=== PATIENT | female | born 1950 | race Caucasian/White ===

== ENCOUNTER → 2018-11-19 | Outpatient (CLI) | payer MEDICARE ==
[~2018-11-19] MED LIST: ATOR10TA PO; CITA10TA70 PO; CLCX200C PO; CLON2TAB16; CYCL5TAB11 PO; DIAZ10TA PO; FLT05NA16 NSEACH; HCT25T PO; HYDR-707 PO; LAMO100T; LATA2.5D5 OP; LEVO125T; METO25TA PO; PANT20TA2 PO; TOPI100T2 PO; TRAZ150T42 PO; TRIM100T7 PO; TRZ100T; [UNRECOGNIZED DRUG - CODE] TP
--- NOTE | 2018-11-20 20:46 | Diagnostic Imaging Report ---
INDICATION: Routine screening. Comparison is made with prior mammogram from 04/19/2014. 2-D and 3-D bilateral screening mammography was performed with a Computer Aided Detection (CAD) system. FINDINGS: Bilateral subpectoral breast implants are again noted. Implant contours appear stable. There are scattered fibroglandular densities throughout both breasts. The parenchymal pattern is stable. No mass or malignant-appearing microcalcifications are seen. The axillae are unremarkable. IMPRESSION: No mammographic features suspicious for malignancy are identified. ACR BI-RADS Category 2: Benign findings. Result letter will be mailed to the patient. Note: At least 10% of breast cancer is not imaged by mammography. Dictated on workstation # [id number]
== END ==
LOC: RAD 14:26
PROVIDERS: ATTEND Nurse Practitioner Family
DX: Z12.31 Encounter for screening mammogram for malignant neoplasm of breast (principal)
CPT/HCPCS: 77067

== ENCOUNTER → 2019-04-13 | Outpatient (CLI) | payer MEDICARE ==
--- NOTE | 2019-04-13 14:15 | Diagnostic Imaging Report ---
PROCEDURE: MRI right joint upper extremity without contrast. TECHNIQUE: Multiplanar, multisequence non contrast-enhanced MRI of the right upper extremity was accomplished. INDICATION: Right shoulder pain for one year. COMPARISON: None. FINDINGS: No acute fracture or dislocation is seen in the right shoulder. Small focus of increased T2 signal at the anterior greater tuberosity likely represents subcortical cyst-like changes and is degenerative. There is mildly increased joint fluid. There is a small full-thickness defect at the articular surface of the humeral head measuring 4 mm. There is severe tendinosis with intrasubstance tearing of the supraspinatus tendon, which extends medially. The infraspinatus tendon demonstrates low-grade partial-thickness tearing at the articular surface distally. The teres minor tendon is intact. The subscapularis tendon demonstrates mild tendinosis but appears intact. The long head of the biceps tendon demonstrates a complete tear proximally at the intra-articular portion. The glenoid labrum is suboptimally evaluated in the absence of intra-articular contrast, but does appear to demonstrate degeneration with no paralabral cyst seen. The spinoglenoid and suprascapular notches are clear. There are [id number] degenerative changes in the right acromioclavicular joint with a small subacromial spur. The acromion has a curved undersurface. The coracoclavicular and coracoacromial ligaments are intact. There is no muscular atrophy. The soft tissues about the right shoulder are otherwise unremarkable. IMPRESSION: 1. Marked tendinosis with low-grade intrasubstance tearing of the supraspinatus tendon. Low-grade partial-thickness tearing of the infraspinatus tendon. No muscular atrophy is seen. 2. Complete tear of the proximal long head of the biceps tendon. 3. Degenerative changes in the acromioclavicular joint with subacromial spurring. Dictated by: Dictated on workstation # [id number]
== END ==
LOC: RAD 12:32
PROVIDERS: ATTEND Orthopaedic Surgery
DX: M75.101 Unspecified rotator cuff tear or rupture of right shoulder, not specified as traumatic (principal); S46.111A Strain of muscle, fascia and tendon of long head of biceps, right arm, initial encounter; M19.011 Primary osteoarthritis, right shoulder
CPT/HCPCS: 73221

== ENCOUNTER 2019-05-25 15:51 | Outpatient (RCR) | payer MEDICARE | END 2019-07-15 12:45 | disposition home or self-care (01) | PROVIDERS: ATTEND Orthopaedic Surgery | DX: M75.101 Unspecified rotator cuff tear or rupture of right shoulder, not specified as traumatic (principal); M75.41 Impingement syndrome of right shoulder; Z98.1 Arthrodesis status; Z87.81 Personal history of (healed) traumatic fracture ==

== ENCOUNTER → 2019-06-04 | Outpatient (CLI) | payer MEDICARE ==
--- NOTE | 2019-06-04 10:28 | Diagnostic Imaging Report ---
PROCEDURE: MR imaging cervical spine without contrast. TECHNIQUE: Multiplanar, multisequence MR imaging of the cervical spine was performed without contrast. INDICATION: Prior cervical spine fusion. Spondylosis. COMPARISON: 11/22/2011 FINDINGS: Interval anterior fusion with interbody bone grafting at C3-C6. Normal alignment. Vertebral body heights are preserved. Bone marrow signal is otherwise normal. No spinal canal narrowing. Osteophytic ridging and facet hypertrophy result in mild neural foraminal narrowing on the right at C2-C3, C4-C5, C5-C6 and on the left at C3-C4. Bilateral mild neural foraminal narrowing at C6-C7. No high-grade neural foraminal narrowing. No abnormal signal in the cervical spinal cord. The visualized paravertebral soft tissues are unremarkable. IMPRESSION: 1. Interval anterior fusion with interbody bone grafting at C3-C6. 2. Scattered mild neural foraminal narrowing as above. No high-grade spinal canal or neural foraminal narrowing. 3. No abnormal signal in the cervical spinal cord. Dictated by: Dictated on workstation # [id number]
== END ==
LOC: RAD 08:28
PROVIDERS: ATTEND Nurse Practitioner Family
DX: M47.816 Spondylosis without myelopathy or radiculopathy, lumbar region (principal); M48.02 Spinal stenosis, cervical region; M25.78 Osteophyte, vertebrae; Z98.1 Arthrodesis status
CPT/HCPCS: 72141

== ENCOUNTER 2019-12-03 18:40 | Emergency (ER) | payer MEDICARE ==
[~2019-12-03] VITALS: Ht 63.5 cm; Wt 173.0 kg
[2019-12-03] MEDS ORDERED: morphine INJ 10 MG/ML 1ML (SYR OR VIAL) IVP STA (18:49)
--- NOTE | 2019-12-03 18:52 | ED Abdominal Pain ---
General Chief Complaint: Abdominal/GI Problems Stated Complaint: SOA Source of Information: Patient Exam Limitations: No Limitations History of Present Illness Date Seen by Provider: Dec 03, 2019 Time Seen by Provider: 18:51 Initial Comments To ER with reports of abdominal pain left lower quadrant, abdominal distention. She's also had constipation. SHe is also had shortness of breath. She's had symptoms for 2 days. She has chills but no measured fevers. No exposure that she is known about 2 Covid patients. Timing/Duration: 1-2 Days Severity/Quality: Moderate Location: [facility] Radiation: No Radiation Activities at Onset: None Associated Symptoms: Denies Symptoms Allergies and Home Medications Allergies Coded Allergies: No Known Drug Allergies (Unverified Allergy, Mild, 07/14/09) Home Medications Diazepam 10 Mg Tablet, 1 EACH PO QID, (Reported) Latanoprost 2.5 Ml Drops, 2.5 ML OP DAILY Prescribed by: JOSH AMAYA on 12/01/14 0850 Metoprolol Succinate 25 Mg Tab.sr.24h, 1 EACH PO DAILY Prescribed by: JOSH AMAYA on 12/01/14 0850 Metronidazole 500 Mg Tablet, 500 MG PO TID Prescribed by: ABDULKADIR OLEARY on 12/03/192033 Pantoprazole Sodium 20 Mg Tablet.dr, 40 MG PO DAILY Prescribed by: NIMA DRAKE on 12/01/141114 Sulfamethoxazole/Trimethoprim 1 Each Tablet, 1 EACH PO BID Prescribed by: ABDULKADIR OLEARY on 12/03/192033 Topiramate 100 Mg Tablet, 100 MG PO DAILY Prescribed by: JOSH AMAYA on 12/01/14 0850 Trazodone Hcl 150 Mg Tablet, 150 MG PO DAILY Prescribed by: JOSH AMAYA on 12/01/1450 Patient Home Medication List Home Medication List Reviewed: Yes Review of Systems Review of Systems Constitutional: see HPI EENTM: No Symptoms Reported Respiratory: See HPI, Shortness of Air Cardiovascular: No Symptoms Reported Gastrointestinal: See HPI, Abdominal Pain Genitourinary: No Symptoms Reported Musculoskeletal: no symptoms reported Skin: no symptoms reported Psychiatric/Neurological: No Symptoms Reported Endocrine: No Symptoms Reported Hematologic/Lymphatic: No Symptoms Reported Past Ikwbsgi-Bzrgbv-Ccsaaa Hx Patient Social History Recent Foreign Travel: No Contact w/Someone Who Travel: No Immunizations Up To Date Date of Pneumonia Vaccine: Dec 01, 2012 Past Medical History Reproductive Disorders: No Physical Exam Vital Signs Vital Signs - First Documented 12/03/19 18:47 Temp 37.6 Pulse 104 Resp 20 B/P (MAP) 135/77 (96) Pulse Ox 96 O2 Delivery Room Air Capillary Refill : Height/Weight/BMI Height: 5'7.00" Weight: 135lbs. oz. 61.850268yf; BMI Method: General Appearance: WD/WN, no apparent distress, other (anxious) Neck: non-tender, full range of motion Respiratory: chest non-tender, lungs clear, normal breath sounds, no respiratory distress, no accessory muscle use Gastrointestinal: normal bowel sounds, soft, tenderness Extremities: normal range of motion, non-tender Pelvic: normal external exam, normal adnexa Neurologic/Psychiatric: alert, normal mood/affect, oriented x 3 Skin: normal color, warm/dry Progress/Results/Core Measures Results/Orders Lab Results Laboratory Tests Test 12/03/19 18:55 Range/Units White Blood Count 12.4 H 4.3-11.0 10^3/uL Red Blood Count 4.43 4.35-5.85 10^6/uL Hemoglobin 13.8 11.5-16.0 G/DL Hematocrit 41 35-52 % Mean Corpuscular Volume 92 80-99 FL Mean Corpuscular Hemoglobin 31 25-34 PG Mean Corpuscular Hemoglobin Concent 34 32-36 G/DL Red Cell Distribution Width 13.0 10.0-14.5 % Platelet Count 227 130-400 10^3/uL Mean Platelet Volume 9.2 7.4-10.4 FL Neutrophils (%) (Auto) 65 42-75 % Lymphocytes (%) (Auto) 23 12-44 % Monocytes (%) (Auto) 10 0-12 % Eosinophils (%) (Auto) 2 0-10 % Basophils (%) (Auto) 0 0-10 % Neutrophils # (Auto) 8.1 H 1.8-7.8 X 10^3 Lymphocytes # (Auto) 2.9 1.0-4.0 X 10^3 Monocytes # (Auto) 1.2 H 0.0-1.0 X 10^3 Eosinophils # (Auto) 0.3 0.0-0.3 10^3/uL Basophils # (Auto) 0.0 0.0-0.1 10^3/uL Sodium Level 131 L 135-145 MMOL/L Potassium Level 3.9 3.6-5.0 MMOL/L Chloride Level 95 L 98-107 MMOL/L Carbon Dioxide Level 23 21-32 MMOL/L Anion Gap 13 5-14 MMOL/L Blood Urea Nitrogen 13 7-18 MG/DL Creatinine 1.05 0.60-1.30 MG/DL Estimat Glomerular Filtration Rate 52 BUN/Creatinine Ratio 12 Glucose Level 114 H 70-105 MG/DL Calcium Level 9.5 8.5-10.1 MG/DL Corrected Calcium 9.3 8.5-10.1 MG/DL Total Bilirubin 0.8 0.1-1.0 MG/DL Aspartate Amino Transf (AST/SGOT) 22 5-34 U/L Alanine Aminotransferase (ALT/SGPT) 21 0-55 U/L Alkaline Phosphatase 77 40-136 U/L Troponin I < 0.028 <0.028 NG/ML C-Reactive Protein High Sensitivity 14.52 H 0.00-0.50 MG/DL B-Type Natriuretic Peptide 29.2 <100.0 PG/ML Total Protein 8.1 6.4-8.2 GM/DL Albumin 4.2 3.2-4.5 GM/DL Lipase 26 8-78 U/L My Orders Orders - ABDULKADIR OLEARY APRN Morphine Injection (Morphine Injection (12/03/19 18:49) Cbc With Automated Diff (12/03/19 18:49) Comprehensive Metabolic Panel (12/03/19 18:49) Hs C Reactive Protein (12/03/19 18:49) Ed Iv/Invasive Line Start (12/03/19 18:49) Ua Culture If Indicated (12/03/19 18:49) Lipase (12/03/19 18:55) Troponin I (12/03/19 18:55) BNP (12/03/19 19:01) Iohexol Injection (Omnipaque 350 Mg/Ml 1 (12/03/19 19:15) Received Contrast (Hold Metformin- Contr (12/03/19 19:15) Sodium Chloride Flush (Catheter Flush Sy (12/03/19 19:15) Ns (Ivpb) (Sodium Chloride 0.9% Ivpb Bag (12/03/19 19:15) Ct Fabiana Chest/Noang Abd-Pelv W (12/03/19 19:01) Antacid Suspension (Mylanta Suspension (12/03/19 19:30) Lidocaine 2% Viscous 15 Ml (Xylocaine Vi (12/03/19 19:30) Coronavirus Sars-Cov-2 So 2018 (12/03/19 20:35) Medications Given in ED Current Medications Medications Dose Ordered Sig/Arleen Route Start Time Stop Time Status Last Admin Dose Admin Al Hydrox/Mg Hydrox/Simethicone 30 ml ONCE ONCE PO 12/03/19 19:30 12/03/19 19:31 DC 12/03/19 19:30 30 ML Iohexol 100 ml ONCE ONCE IV 12/03/19 19:15 12/03/19 19:16 DC 12/03/19 19:56 88 ML Lidocaine HCl 10 ml ONCE ONCE PO 12/03/19 19:30 12/03/19 19:31 DC 12/03/19 19:31 10 ML Sodium Chloride 10 ml NEEDED PRN IV 12/03/19 19:15 12/03/19 19:56 10 ML Sodium Chloride 100 ml ONCE ONCE IV 12/03/19 19:15 12/03/19 19:16 DC 12/03/19 19:56 80 ML Vital Signs/I&O 12/03/19 18:47 Temp 37.6 Pulse 104 Resp 20 B/P (MAP) 135/77 (96) Pulse Ox 96 O2 Delivery Room Air Departure Communication (Admissions) NAME: RACHEAL MARQUEZ [facility] REC#: [id number] PT STATUS: REG ER : 1950 PHYSICIAN: ABDULKADIR OLEARY VENUE COORDINATOR ADMIT DATE: 12/03/19/ER Draft Date of Exam:12/03/19 CT FABIANA CHEST/NOANG ABD-PELV W INDICATION: History of Crohn's disease. Shortness of air. Epigastric pain. Left lower quadrant pain. Constipation. COMPARISON: None. TECHNIQUE: Postcontrast CTA of the chest was performed. Multiplanar and 3D reformats were also performed and reviewed. Routine postcontrast CT of the abdomen and pelvis was also performed. Contrast was administered intravenously. FINDINGS: CTA chest: There is no acute pulmonary embolus to the 1st subsegmental division of the pulmonary arteries. Evaluation of thoracic aorta shows mild scattered calcified atherosclerosis. There is suboptimal enhancement of the lumen of the thoracic aorta, but there is no evidence of dissection, aneurysm or focal significant stenosis. Heart size is within normal limits. There is no large pericardial effusion. Mild to moderate calcified coronary atherosclerosis is identified involving the proximal left anterior and circumflex coronary arteries. A few small mediastinal lymph nodes are noted. No pathologically enlarged or morphologically abnormal adenopathy is seen within the mediastinum, rudolph or axilla. Lung hu show mild dependent atelectasis. There is no focal consolidation, large effusion or pneumothorax. 6 mm micronodule is noted within the posterior medial margins of the left upper lobe (image 52, series 4). Osseous structures show no acute abnormality. CT abdomen: There is subtle stranding of the pericolonic fat surrounding the high sigmoid colon (image 139, series 3). A few scattered colonic diverticuli are noted. There is no pneumatosis, pneumoperitoneum or portal venous gas. There is no free fluid or loculated air-fluid collection within the abdomen or pelvis. Normal appendix cannot be adequately identified, but may be surgically absent. Small bowel loops are nondistended. The kidneys, adrenal glands, spleen and pancreas have a normal CT appearance. Liver appears diffusely hypodense on this postcontrast exam suggestive of underlying hepatic steatosis. Otherwise, liver is unremarkable as well. There is no abnormal mesenteric or retroperitoneal adenopathy. Moderate scattered calcified aortic and arterial atherosclerosis is present. Osseous structures show no acute abnormality. CT pelvis: Urinary bladder is unopacified. No calculi are seen within the urinary bladder. There is no loculated fluid collection, free fluid or free air within the pelvis. No abnormal lymph node is identified. Osseous structures show no acute abnormality. IMPRESSION: 1. No acute pulmonary embolus to the 1st subsegmental division of the pulmonary arteries. 2. 6 mm micronodule within the left upper lobe. Please see below for follow-up recommendations. 3. No other acute cardiopulmonary process. 4. Subtle stranding of the pericolonic fat surrounding the high sigmoid colon. Presence of a few other colonic diverticuli raises suspicion for acute diverticulitis. Clinical correlation is advised. Additionally, colonoscopy is recommended when clinically appropriate to exclude underlying malignancy. 5. Moderate calcified aortic and coronary atherosclerosis. 6. Probable hepatic steatosis. PULMONARY NODULE FOLLOW-UP Single nodule: <6 mm: * Low risk patient - no routine follow up * High risk patient - optional at 12 months 6-8 mm in size: * Low risk patient - Ct at 6-12 months, then consider at 18-24 months * High risk patient - Ct at 6-12 months, then at 18-24 months >8 mm * Low risk patient - consider CT at 3 months, PET/CT or tissue sampling * High risk patient - consider CT at 3 months, PET/CT, or tissue sampling (Certain patients at high risk with suspicious nodule morphology, upper lobe location, or both may warrant 12-month follow-up) Dictated on workstation # [id number] Dict: 12/03/192009 Trans: 12/03/192056 [facility] [id number] Interpreted by: DAYNE REYNOLDS MD Electronically signed by: Impression Primary Impression: Anxiety Additional Impressions: Sigmoid diverticulitis GERD (gastroesophageal reflux disease) Hx of Crohn's disease Disposition: HOME, SELF-CARE Condition: Stable Departure-Patient Inst. Decision time for Depature: 20:32 Referrals: [facility]/ (PCP) Primary Care Physician JOSE CAMPA APRN (Family) Primary Care Physician Patient Instructions: Acid Reflux and Gastroesophageal Reflux Disease in Adults, Anxiety, Adult (DC), Diverticulitis Add. Discharge Instructions: 1. Return to ER for any concerns 2. Antibiotics as directed 3. Call your regular DrRaffi tomorrow to make an appointment to be seen for follow- up first of next week. All discharge instructions reviewed with patient and/or family. Voiced unders tanding. Scripts Metronidazole (Metronidazole) 500 Mg Tablet 500 MG PO TID, #21 TAB 0 Refills Prov: ABDULKADIR OLEARY APRN 12/03/19 Sulfamethoxazole/Trimethoprim (Bactrim Ds Tablet) 1 Each Tablet 1 EACH PO BID, #14 TAB Prov: ABDULKADIR OLEARY APRN 12/03/19 ABDULKADIR OLEARY APRN Dec 03, 2019 18:52
[2019-12-03 19:03] LABS: BASOPHILS % (AUTO) 0 % (0-10); EOSINOPHILS # (AUTO) 0.3 10^3/uL (0.0-0.3); EOSINOPHILS % (AUTO) 2 % (0-10); HEMATOCRIT 41 % (35-52); HEMOGLOBIN 13.8 G/DL (11.5-16.0); LYMPHOCYTES # (AUTO) 2.9 X 10^3 (1.0-4.0); LYMPHOCYTES % (AUTO) 23 % (12-44); MEAN CORPUSCULAR HEMOGLOBIN 31 PG (25-34); MEAN CORPUSCULAR HGB CONC 34 G/DL (32-36); MEAN CORPUSCULAR VOLUME 92 FL (80-99); MEAN PLATELET VOLUME 9.2 FL (7.4-10.4); MONOCYTES # (AUTO) 1.2 X 10^3 (0.0-1.0); MONOCYTES % (AUTO) 10 % (0-12); NEUTROPHILS # (AUTO) 8.1 X 10^3 (1.8-7.8); NEUTROPHILS % (AUTO) 65 % (42-75); PLATELET COUNT 227 10^3/uL (130-400); WHITE BLOOD COUNT 12.4 10^3/uL (4.3-11.0)
[2019-12-03] MEDS ORDERED: NS 100 ML (IVPB) BAG IV ONE (19:15)
[2019-12-03] MEDS ORDERED: CATHETER FLUSH 10 ML SYR IV PRN (19:15)
[2019-12-03] MEDS ORDERED: IOHEXOL 350 MG/ML 100 ML (OMNIPAQUE 350) VIAL IV ONE (19:15)
[2019-12-03] MEDS ORDERED: HOLD METFORMIN - RECEIVED CONTRAST 20 ML VIAL IV SCH (19:15)
[2019-12-03 19:24] LABS: ALANINE AMINOTRANSFERASE 21 U/L (0-55); ALBUMIN 4.2 GM/DL (3.2-4.5); ALKALINE PHOSPHATASE 77 U/L (40-136); BILIRUBIN,TOTAL 0.8 MG/DL (0.1-1.0); BUN/CREATININE RATIO 12; CALCIUM 9.5 MG/DL (8.5-10.1); CARBON DIOXIDE 23 MMOL/L (21-32); CHLORIDE 95 MMOL/L (98-107); CREATININE SERUM 1.05 MG/DL (0.60-1.30); GFR ESTIMATED 52; GLUCOSE 114 MG/DL (70-105); LIPASE 26 U/L (8-78); POTASSIUM 3.9 MMOL/L (3.6-5.0); SODIUM 131 MMOL/L (135-145); TOTAL PROTEIN 8.1 GM/DL (6.4-8.2)
[2019-12-03] MEDS ORDERED: LIDOCAINE 2% VISCOUS 15 ML UDC PO ONE (19:30)
[2019-12-03] MEDS ORDERED: ANTACID SUSP 30 ML UDC (MYLANTA) PO ONE (19:30)
[2019-12-03] MEDS ORDERED: METR-145 PO (20:34)
[2019-12-03] MEDS ORDERED: SULF1TAB35 PO (20:34)
--- NOTE | 2019-12-03 20:58 | Diagnostic Imaging Report ---
INDICATION: History of Crohn's disease. Shortness of air. Epigastric pain. Left lower quadrant pain. Constipation. COMPARISON: None. TECHNIQUE: Postcontrast CTA of the chest was performed. Multiplanar and 3D reformats were also performed and reviewed. Routine postcontrast CT of the abdomen and pelvis was also performed. Contrast was administered intravenously. FINDINGS: CTA chest: There is no acute pulmonary embolus to the 1st subsegmental division of the pulmonary arteries. Evaluation of thoracic aorta shows mild scattered calcified atherosclerosis. There is suboptimal enhancement of the lumen of the thoracic aorta, but there is no evidence of dissection, aneurysm or focal significant stenosis. Heart size is within normal limits. There is no large pericardial effusion. Mild to moderate calcified coronary atherosclerosis is identified involving the proximal left anterior and circumflex coronary arteries. A few small mediastinal lymph nodes are noted. No pathologically enlarged or morphologically abnormal adenopathy is seen within the mediastinum, rudolph or axilla. Lung hu show mild dependent atelectasis. There is no focal consolidation, large effusion or pneumothorax. 6 mm micronodule is noted within the posterior medial margins of the left upper lobe (image 52, series 4). Osseous structures show no acute abnormality. CT abdomen: There is subtle stranding of the pericolonic fat surrounding the high sigmoid colon (image 139, series 3). A few scattered colonic diverticuli are noted. There is no pneumatosis, pneumoperitoneum or portal venous gas. There is no free fluid or loculated air-fluid collection within the abdomen or pelvis. Normal appendix cannot be adequately identified, but may be surgically absent. Small bowel loops are nondistended. The kidneys, adrenal glands, spleen and pancreas have a normal CT appearance. Liver appears diffusely hypodense on this postcontrast exam suggestive of underlying hepatic steatosis. Otherwise, liver is unremarkable as well. There is no abnormal mesenteric or retroperitoneal adenopathy. Moderate scattered calcified aortic and arterial atherosclerosis is present. Osseous structures show no acute abnormality. CT pelvis: Urinary bladder is unopacified. No calculi are seen within the urinary bladder. There is no loculated fluid collection, free fluid or free air within the pelvis. No abnormal lymph node is identified. Osseous structures show no acute abnormality. IMPRESSION: 1. No acute pulmonary embolus to the 1st subsegmental division of the pulmonary arteries. 2. 6 mm micronodule within the left upper lobe. Please see below for follow-up recommendations. 3. No other acute cardiopulmonary process. 4. Subtle stranding of the pericolonic fat surrounding the high sigmoid colon. Presence of a few other colonic diverticuli raises suspicion for acute diverticulitis. Clinical correlation is advised. Additionally, colonoscopy is recommended when clinically appropriate to exclude underlying malignancy. 5. Moderate calcified aortic and coronary atherosclerosis. 6. Probable hepatic steatosis. PULMONARY NODULE FOLLOW-UP Single nodule: <6 mm: * Low risk patient - no routine follow up * High risk patient - optional at 12 months 6-8 mm in size: * Low risk patient - Ct at 6-12 months, then consider at 18-24 months * High risk patient - Ct at 6-12 months, then at 18-24 months >8 mm * Low risk patient - consider CT at 3 months, PET/CT or tissue sampling * High risk patient - consider CT at 3 months, PET/CT, or tissue sampling (Certain patients at high risk with suspicious nodule morphology, upper lobe location, or both may warrant 12-month follow-up) Dictated by: Dictated on workstation # [id number]
[2019-12-03] MEDS ORDERED: cefTRIAXone FOR IV USE 2,000 MG in WATER (STERILE) FOR INJECTION 20 ML IV ONE (21:15)
[2019-12-03] MEDS ORDERED: metroNIDAZOLE 500 MG (FLAGYL) TAB PO ONE (21:15)
[2019-12-03 21:36] VITALS: BP 122/75
== END 2019-12-03 21:40 | disposition home or self-care (01) ==
LOC: EDUNIT# 18:40 → ER 18:42
DX: K57.32 Diverticulitis of large intestine without perforation or abscess without bleeding (principal); F41.9 Anxiety disorder, unspecified; K21.9 Gastro-esophageal reflux disease without esophagitis; K50.90 Crohn's disease, unspecified, without complications
CPT/HCPCS: 36415; 71275; 74177; 80053; 83690; 83880; 84484; 85025; 86141; 87635

== ENCOUNTER → 2019-12-16 | Outpatient (CLI) | payer MEDICARE ==
[~2019-12-16] MED LIST changes: +METR-145 PO; +SULF1TAB35 PO
--- NOTE | 2019-12-16 15:55 | Diagnostic Imaging Report ---
PROCEDURE: CT cervical spine without contrast. TECHNIQUE: Multiple contiguous axial images were obtained through the cervical spine without the use of intravenous contrast. Sagittal and coronal reformations were then performed. Auto Exposure Controls were utilized during the CT exam to meet ALARA standards for radiation dose reduction. INDICATION: Neck pain and prior cervical spine surgery. FINDINGS: Curvature and alignment of the cervical spine is normal. There are postoperative changes of ACDF with anterior plate and screws extending from C3 through C6. Intervertebral grafts at the C3-C4 and C4-C5 levels are noted. There is marked disc space narrowing at the C5-C6 level. The hardware appears to be intact. No fracture or loosening of the hardware is identified. Bony structures are intact. No fractures are seen. There are degenerative facet changes bilaterally, particularly at the C2-C3, C3-C4 and C4-C5 levels bilaterally. Degenerative disc disease at C6-C7 level as noted with disc space narrowing and marginal spurring. Prevertebral tissues are unremarkable. Odontoid is intact. IMPRESSION: Postoperative changes of C3 through C6 ACDF. No hardware fracture or loosening is identified. There is some facet arthropathy and degenerative disc disease, as described. No acute bony abnormality is detected. Dictated by: Dictated on workstation # [id number]
== END ==
LOC: RAD 15:09
PROVIDERS: ATTEND Physician Assistant
DX: M50.323 Other cervical disc degeneration at C6-C7 level (principal); M47.812 Spondylosis without myelopathy or radiculopathy, cervical region; Z98.1 Arthrodesis status
CPT/HCPCS: 72125

== ENCOUNTER → 2020-04-05 | Outpatient (CLI) | payer MEDICARE | LOC: CARD 11:06 | PROVIDERS: ATTEND Internal Medicine Cardiovascular Disease | DX: I48.91 Unspecified atrial fibrillation (principal); E78.2 Mixed hyperlipidemia; I07.1 Rheumatic tricuspid insufficiency; R00.2 Palpitations | CPT/HCPCS: 93306 ==

== ENCOUNTER → 2020-04-06 | Outpatient (CLI) | payer MEDICARE | LOC: CARD 08:45 | PROVIDERS: ATTEND Internal Medicine Cardiovascular Disease | DX: I48.91 Unspecified atrial fibrillation (principal); E78.2 Mixed hyperlipidemia; Z20.828 Contact with and (suspected) exposure to other viral communicable diseases ==

== ENCOUNTER → 2020-08-26 | Outpatient (CLI) | payer MEDICARE ==
[2020-08-26 16:57] LABS: BASOPHILS % (AUTO) 0 % (0-10); EOSINOPHILS # (AUTO) 0.2 10^3/uL (0.0-0.3); EOSINOPHILS % (AUTO) 2 % (0-10); HEMATOCRIT 42 % (35-52); HEMOGLOBIN 14.6 g/dL (11.5-16.0); LYMPHOCYTES # (AUTO) 2.4 10^3/uL (1.0-4.0); LYMPHOCYTES % (AUTO) 24 % (12-44); MEAN CORPUSCULAR HEMOGLOBIN 30 pg (25-34); MEAN CORPUSCULAR HGB CONC 35 g/dL (32-36); MEAN CORPUSCULAR VOLUME 87 fL (80-99); MEAN PLATELET VOLUME 8.4 fL (9.0-12.2); MONOCYTES # (AUTO) 0.9 10^3/uL (0.0-1.0); MONOCYTES % (AUTO) 9 % (0-12); NEUTROPHILS # (AUTO) 6.3 10^3/uL (1.8-7.8); NEUTROPHILS % (AUTO) 63 % (42-75); PLATELET COUNT 453 10^3/uL (130-400); WHITE BLOOD COUNT 9.9 10^3/uL (4.3-11.0)
[2020-08-26 17:07] LABS: ALBUMIN 4.2 GM/DL (3.2-4.5)
[2020-08-26 17:08] LABS: CHLORIDE 93 MMOL/L (98-107); POTASSIUM 4.1 MMOL/L (3.6-5.0); SODIUM 130 MMOL/L (135-145)
[2020-08-26 17:09] LABS: CALCIUM 9.3 MG/DL (8.5-10.1)
[2020-08-26 17:10] LABS: GLUCOSE 106 MG/DL (70-105); TOTAL PROTEIN 8.2 GM/DL (6.4-8.2)
[2020-08-26 17:11] LABS: CARBON DIOXIDE 25 MMOL/L (21-32)
[2020-08-26 17:12] LABS: BILIRUBIN,TOTAL 0.5 MG/DL (0.1-1.0)
[2020-08-26 17:13] LABS: ALKALINE PHOSPHATASE 86 U/L (40-136)
[2020-08-26 17:14] LABS: CREATININE SERUM 0.73 MG/DL (0.60-1.30); GFR ESTIMATED > 60
[2020-08-26 17:15] LABS: BUN/CREATININE RATIO 16
[2020-08-26 17:17] LABS: ALANINE AMINOTRANSFERASE 18 U/L (0-55)
== END ==
LOC: LAB 16:42
PROVIDERS: ATTEND Nurse Practitioner Family
DX: R07.9 Chest pain, unspecified (principal); R05 Cough; R06.02 Shortness of breath; R42 Dizziness and giddiness; R53.83 Other fatigue; Z86.16 Personal history of COVID-19
CPT/HCPCS: 36415; 80053; 85025; 85379

== ENCOUNTER → 2020-11-02 | Outpatient (CLI) | payer MEDICARE ==
--- NOTE | 2020-11-02 15:27 | Diagnostic Imaging Report ---
INDICATION: Neck pain. History of previous fusion. COMPARISON: CT dated 12/16/2019. FINDINGS: Frontal, lateral, and open-mouth radiographic views of the cervical spine were obtained. Cervical spine is seen down to the C7 level on the lateral view. C7-T1 level is obscured. Patient is status post previous anterior fusion of C3-C6. Corea screws appear well seated. Anterior fusion plate is well opposed to the underlying cervical spine. Intervertebral disc spacers are also present and appear appropriately positioned. No unexpected radiopaque foreign bodies are seen. AP static alignment is maintained. There is no significant mary- or retrolisthesis. There is no evidence of jumped facets. Vertebral body heights are also preserved. There is no acute fracture. Moderate to advanced degenerative changes are noticed at C6-C7 and consistent with intervertebral disc height loss with endplate sclerotic changes. IMPRESSION: 1. No acute fracture or dislocation in the cervical spine with limitations as above. 2. Post surgical changes of previous anterior fusion of C3-C6. No evidence of hardware fracture or failure. 3. Moderate to advanced degenerative changes at C6-C7. Dictated by: Dictated on workstation # [id number]
== END ==
LOC: RAD 12:52
PROVIDERS: ATTEND Nurse Practitioner Family
DX: M47.812 Spondylosis without myelopathy or radiculopathy, cervical region (principal); Z98.1 Arthrodesis status
CPT/HCPCS: 72040

== ENCOUNTER → 2020-12-13 | Outpatient (CLI) | payer MEDICARE ==
--- NOTE | 2020-12-13 18:05 | Diagnostic Imaging Report ---
PROCEDURE: MR imaging cervical spine without contrast. TECHNIQUE: Multiplanar, multisequence MR imaging of the cervical spine was performed without contrast. INDICATION: Chronic neck pain COMPARISON to cervical MR 06/04/2019 FINDINGS: C3-C6 ACDF again present. Alignment above and below as well as across the fusion is anatomic. There is no complicating feature appreciable at MRI. Cervical spinal cord has an unremarkable volume morphology and signal intensity. No paravertebral mass, hemorrhage or fluid collection. The craniocervical relationship is normal. C1-C2 level is unremarkable. C2-C3: There is disc desiccation, stature loss, bulge with endplate osteophytes effacing the ventral thecal sac, increased from prior, now resulting in mild to moderate canal stenosis with mild left and ksyl-io-hfaichch right foraminal narrowing. There is increased hypertrophic facet arthrosis. Throughout the levels of fusion, no significant disc space level or vertebral body canal stenosis found. No substantial foraminal encroachment. C6-C7: Posterior osteophyte disc material effaces the ventral thecal sac. There is mild canal and borderline mild left foraminal stenosis. The C7-T1 level normal. No stenosis. IMPRESSION: Multilevel cervical anterior and interbody fusion without complicating feature or malalignment. There is some increased junctional stenosis at the C2-C3 level and mildly involving the C6-C7 level. Normal cord, normal alignment. No marrow edema. No fluid collection or acute findings. Dictated by: Dictated on workstation # [id number]
== END ==
LOC: RAD 15:00
PROVIDERS: ATTEND Physician Assistant
DX: M48.02 Spinal stenosis, cervical region (principal); M43.22 Fusion of spine, cervical region
CPT/HCPCS: 72141

== ENCOUNTER → 2021-01-03 | Outpatient (CLI) | payer MEDICARE | END | disposition home or self-care (01) | LOC: PREOP 06:28 | PROVIDERS: ATTEND Specialist | DX: Z01.818 Encounter for other preprocedural examination (principal) ==

== ENCOUNTER → 2021-10-11 | Outpatient (CLI) | payer MEDICARE ==
[~2021-10-11] VITALS: Ht 170 cm; Wt 65.0 kg
[~2021-10-11] MED LIST changes: +REGADENOSON 0.4 MG/5 ML SYR (LEXISCAN) IV ONE; -SULF1TAB35 PO; +SULF1TAB38 PO
[2021-10-11] MEDS: CATHETER FLUSH 10 ML SYR IVP PRN ×2 (07:17→09:05)
[2021-10-11 08:59] VITALS: BP 178/84
--- NOTE | 2021-10-11 12:08 | Cardiology Stress Test Report ---
Stress Test Report Date of Procedure/Referring: Date of Procedure: Oct 11, 2021 Michelle Degroot Admitting Physician Center/[facility] Indications: CP Baseline Heart Rate: 75 Baseline Blood Pressure: Blood Pressure Systolic: 178 Blood Pressure Diastolic: 84 Baseline Vitals Vital Signs Date Time Temp Pulse Resp B/P (MAP) Pulse Ox O2 Delivery O2 Flow Rate FiO2 10/11/21 08:59 78 20 178/84 (115) 99 Room Air Baseline EKG: Baseline EKG: NSR Summary After explaining the procedure to the patient, she signed a consent and then brought to the stress nuclear laboratory. Patient received 0.4 mg Lexiscan for stress test, ECG, heart rate and blood pressure were monitored continuously. Resting and stress dose of radio tracer were injected, imaging was acquired and reviewed in short axis, horizontal long axis and vertical long axis views. TID: 1.1 SSS: 0 SDS: 0 EF: 77 1. Patient tolerated Lexiscan well 2. No significant ischemia or infarction on SPECT images 3. Normal left ventricular size, EF 77% JASON RODRÍGUEZ MD Oct 11, 2021 12:08
== END ==
LOC: CARD 09:15
PROVIDERS: ATTEND Physician Assistant
DX: R07.9 Chest pain, unspecified (principal)
CPT/HCPCS: 78452; 93017; A9502

== ENCOUNTER → 2021-11-14 | Outpatient (CLI) | payer MEDICARE ==
[~2021-11-14] MED LIST changes: +CATHETER FLUSH 10 ML SYR IV PRN; +HOLD METFORMIN - RECEIVED CONTRAST 20 ML VIAL IV SCH; +IOHEXOL 350 MG/ML 100 ML (OMNIPAQUE 350) VIAL IV ONE; +NS 100 ML (IVPB) BAG IV ONE; -REGADENOSON 0.4 MG/5 ML SYR (LEXISCAN) IV ONE
--- NOTE | 2021-11-14 16:11 | Diagnostic Imaging Report ---
PROCEDURE: CT abdomen and pelvis with contrast. TECHNIQUE: Multiple contiguous axial images were obtained through the abdomen and pelvis after administration of intravenous contrast. Auto Exposure Controls were utilized during the CT exam to meet ALARA standards for radiation dose reduction. All CT scans use one or more of the following dose optimizing techniques: automated exposure control, MA and/or KvP adjustment based on patient size and exam type or iterative reconstruction. INDICATION: Right lower quadrant pain. COMPARISON: Correlation is made with the prior CT from 12/03/2019. FINDINGS: The lung bases are clear. No discrete liver mass is detected. The gallbladder is surgically absent. There is no biliary ductal dilatation. The pancreas and spleen are unremarkable. No adrenal mass is detected. The kidneys are unremarkable. The aorta is nonaneurysmal but heavily calcified. The small and large bowel loops are of normal caliber. No obstruction is identified. No inflammatory changes are seen. There are some surgical clips in the left pelvis. The bladder is unremarkable. The uterus appears to be surgically absent. No free fluid or fluid collection is identified. No definite abdominal or pelvic lymphadenopathy is detected. The bony structures are nonacute. IMPRESSION: Unremarkable CT of the abdomen and pelvis with contrast. No acute feature is identified. Dictated by: Dictated on workstation # [id number]
== END ==
LOC: RAD 14:15
PROVIDERS: ATTEND Internal Medicine Gastroenterology
DX: K58.0 Irritable bowel syndrome with diarrhea (principal); Z87.19 Personal history of other diseases of the digestive system
CPT/HCPCS: 74177

== ENCOUNTER → 2022-02-07 | Outpatient (CLI) | payer MEDICARE ==
[~2022-02-07] VITALS: Ht 170.2 cm; Wt 65.0 kg
[~2022-02-07] MED LIST changes: +BUSP15TA60 PO; -CATHETER FLUSH 10 ML SYR IV PRN; -HOLD METFORMIN - RECEIVED CONTRAST 20 ML VIAL IV SCH; -IOHEXOL 350 MG/ML 100 ML (OMNIPAQUE 350) VIAL IV ONE; +LANS15TA10 PO; +LEVO137T40 PO; -NS 100 ML (IVPB) BAG IV ONE; +TOPI50TA13 PO; +TRAZ150T72 PO; +TRIA1CAP84 PO
== END | disposition home or self-care (01) ==
LOC: PREOP 10:34
PROVIDERS: ATTEND Specialist
DX: Z01.818 Encounter for other preprocedural examination (principal)

== ENCOUNTER 2022-02-09 10:01 | Day surgery (SDC) | payer MEDICARE ==
[~2022-02-09] VITALS: Ht 170.2 cm; Wt 65.0 kg
[2022-02-09] MEDS ORDERED: PHENYLEPHRINE 10% OPHTH (NEO-SYN) 5 ML BTL OU PRN (10:15)
[2022-02-09] MEDS ORDERED: TROPICAMIDE 1% OPH SOLN (MYDRIACYL) 15 ML BTL OU PRN (10:15)
[2022-02-09] MEDS ORDERED: TETRACAINE 0.5% OPHTH SOLN 4 ML BTL (SINGLE DOSE ONLY) OU PRN (10:15)
--- NOTE | 2022-02-09 10:28 | Ophthalmologist Pre-Op Note ---
Pre-Operative Progress Note H&P Reviewed The H&P was reviewed, patient examined and no changes noted. Date H&P Reviewed: Feb 09, 2022 Time H&P Reviewed: 10:28 Pre-Op Dx Secondary Cataract, Bilateral Eyes SHEILA SAVAGE MD Feb 09, 2022 10:28
[2022-02-09 10:33] VITALS: BP 151/89
--- NOTE | 2022-02-09 11:15 | Ophthalmology Operative Report ---
YAG Capsulotomy PREOPERATIVE DIAGNOSIS: Secondary Cataract Bilateral POSTOPERATIVE DIAGNOSIS: Secondary Cataract Bilateral PROCEDURE: YAG Capsulotomy, Bilateral SURGEON: Peterson Savage ANESTHESIA: Topical anesthesia COMPLICATIONS: None ESTIMATED BLOOD LOSS: Minimal DESCRIPTION OF PROCEDURE: After proper informed consent was obtained, the patient's, a 71 female , received one drop of Tropicamide and one drop of Tetracaine in each eye. The patient was then placed at the YAG laser and using a power of [3.8 ] millijoules and bursts [17 ] right eye and [ 15] left eye were used to fashion a central capsulotomy. The patient tolerated the procedure well without complications. PETERSON SAVAGE MD Feb 09, 2022 11:15
== END 2022-02-09 11:05 | disposition home or self-care (01) ==
LOC: SDC 10:01
PROVIDERS: ATTEND Specialist
DX: H26.40 Unspecified secondary cataract (principal)

== ENCOUNTER 2023-04-09 15:30 | Outpatient (CLI) | payer MEDICARE ==
[~2023-04-09 15:30] MED LIST changes: +TOPI-241 PO; -TOPI50TA13 PO
== END 2023-04-09 15:50 ==
LOC: SLEEP 15:30
PROVIDERS: ATTEND Internal Medicine Cardiovascular Disease
DX: G47.33 Obstructive sleep apnea (adult) (pediatric) (principal)
CPT/HCPCS: G0399